=== PATIENT | male | born 1985 | race Caucasian/White ===

== ENCOUNTER 2022-09-15 07:12 | Emergency (ER) | payer OTHER ==
[2022-09-15 09:04] LABS: HIV (1/2) Antibody/Antigen Non-Reactive (NonReactive); HIV 1/2 INDEX 0.26 S/CO (<1.00); Hep C IgG Ab Non-Reactive (NonReactive); Hep C Index 0.03 S/CO (0-0.79)
[2022-09-15 09:06] LABS: HBSAB Concentration 44.02 mIU/mL; Hep B Surf AB Reactive (NonReactive)
== END 2022-09-15 07:49 | disposition home or self-care (01) ==
LOC: ERS 07:12
DX: Z00.00 Encounter for general adult medical examination without abnormal findings (principal)
CPT/HCPCS: 36415; 99281

== ENCOUNTER 2023-10-15 13:29 | Outpatient (CLI) | payer BC | END 2023-10-15 13:30 | disposition home or self-care (01) | PROVIDERS: ATTEND Internal Medicine Cardiovascular Disease | DX: R06.02 Shortness of breath (principal) | CPT/HCPCS: 93017 ==